=== PATIENT | female | born 1945 | race Caucasian/White ===

== ENCOUNTER 2023-10-22 12:58 | Emergency (ER) | payer MEDICARE ==
[2023-10-22 13:25] VITALS: RESP 18; TEMP 97.3
--- NOTE | 2023-10-22 14:26 | XRAY ---
Indication: Facial injury following fall. Multiple contiguous axial images obtained through the head without contrast. Comparison: None Normal appearing brain parenchyma, ventricles, and bony calvarium for patient's age. Visualized paranasal sinuses and mastoid air cells are clear. CT facial bones and CT cervical spine reported separately. Impression: Normal CT head without contrast exam.
--- NOTE | 2023-10-22 14:30 | XRAY ---
Indication: Facial injury following fall. Multiple contiguous axial images obtained through the cervical spine. Sagittal and coronal reformatted images obtained. Comparison: None Patient is edentulous. Osseous structures demineralized. Axial images negative for acute fracture, suspicious bony lesions, or spinal canal stenosis. Minimal/mild C4-C7 degenerative endplate spurring and mild/moderate multilevel bilateral degenerative facet hypertrophy right greater than left. Sagittal and coronal reformatted images demonstrates normal alignment. C5-C7 degenerative disc space narrowing. No acute compression fracture, subluxation, or jumped facet. Normal appearing craniocervical junction. Visualized noncontrasted soft tissues demonstrate mild bilateral carotid calcifications. Lung apices clear with incidental tiny calcified granulomas. CT facial bones and CT head reported separately. Impression: 1. Negative acute fracture/subluxation. 2. Incidental osteopenia, multilevel degenerative changes, bilateral carotid calcifications, and old granulomatous disease.
--- NOTE | 2023-10-22 14:34 | XRAY ---
Indication: Facial injury following fall. Multiple contiguous axial images obtained through the facial bones. Sagittal and coronal reformatted images obtained. Comparison: None Patient is edentulous. Osseous structures demineralized. Left facial soft tissue swelling with 2.2 x 3.4 x 3.0 cm subcutaneous hematoma. Axial images negative for acute fracture, suspicious bony lesions, or radiopaque foreign body. Orbits including roof, gaming, and floors intact. Paranasal sinuses and nasal passages are clear. Incidental minimal nasal septal deviation to the right and left middle turbinate jermaine bullosa. Visualized noncontrasted soft tissues demonstrates scattered subcentimeter cervical and submandibular lymph nodes, none pathologically enlarged. CT cervical spine and CT head reported separately. Impression: 1. Left facial soft tissue swelling with subcutaneous hematoma. 2. Negative for acute fracture. 3. Incidental nasal septal deviation and left middle turbinate jermaine bullosa.
[2023-10-22 14:57] VITALS: BP 154/87; PULSE 61; O2SAT 97
--- NOTE | 2023-10-22 15:14 | ERPHSYRPT ---
- History of Present Illness Time Seen by Provider: 10/22/23 13:15 Source: patient Exam Limitations: no limitations Patient Subjective Stated Complaint: Facial injury Triage Nursing Assessment: Patient ambulated back to ED and transferred self to bed. Patient A+O X3. Patient's skin pink, warm and dry. Patient complains of facial injury after getting tripped up in her blankets and fell hitting the corner of the table on the left cheek. Patient complains of tenderness to left upper cheek. Patient has bruising noted to gudelia eyes, entire left side of face and neck. Physician History: 78 years old female is sent in ER from [facility] for evaluation of left facial swelling and hematoma to make sure she does not have any fracture. Patient apparently got up from her bed 2 days ago, got tangled/tripped and fell forward hitting her face against the dresser edge. No loss of consciousness. Patient reports acute swelling left face, has been applying ice with some improvement in the swelling today. She was having difficulty opening her eye yesterday which is a little better as well. She has no neck pain, minimal headache at times. No visual disturbance or difficulty speech. No focal numbness tingling or weakness reported. Allergies/Adverse Reactions: No Known Drug Allergies Allergy (Unverified 10/22/23 13:14) Home Medications: Esomeprazole Magnesium [Nexium 24Hr] 1 tab PO DAILY 10/22/23 [History] Hx Influenza Vaccination/Date Given: No Hx Pneumococcal Vaccination/Date Given: No Immunizations Up to Date: Yes Travel Risk - International Travel Have you traveled outside of the country in past 3 weeks: No - Coronavirus Screening Are you exhibiting any of the following symptoms?: No Close contact with a COVID-19 positive Pt in past 14-21 Days: No - Vaccine Status Have you recieved a Covid-19 vaccination: Yes Director Of Patient Safety: Unknown - Vaccination Dates Dates if Unknown: na - Review of Systems Constitutional: No Symptoms Eyes: No Symptoms Ears, Nose, & Throat: No Symptoms Respiratory: No Symptoms Cardiac: No Symptoms Abdominal/Gastrointestinal: No Symptoms Genitourinary Symptoms: No Symptoms Musculoskeletal: Injury Skin: Skin Lesions Neurological: No Symptoms Psychological: No Symptoms Endocrine: No Symptoms Immunological/Allergic: No Symptoms - Past Medical History Pertinent Past Medical History: Yes Neurological History: No Pertinent History ENT History: No Pertinent History Cardiac History: No Pertinent History Respiratory History: No Pertinent History Endocrine Medical History: Hypoglycemia Musculoskeletal History: No Pertinent History GI Medical History: GERD History: No Pertinent History Psycho-Social History: No Pertinent History Female Reproductive Disorders: No Pertinent History Other Medical History: Seasonal allergies, GERD, Vertigo - Past Surgical History Past Surgical History: No Neuro Surgical History: No Pertinent History Cardiac: No Pertinent History Respiratory: No Pertinent History Gastrointestinal: No Pertinent History Genitourinary: No Pertinent History Musculoskeletal: No Pertinent History Female Surgical History: No Pertinent History - Social History Smoking Status: Former smoker Exposure to second hand smoke: Yes Drug Use: none Patient Lives Alone: Yes - Nursing Vital Signs Nursing Vital Signs: Initial Vital Signs Temperature 97.3 F 10/22/23 13:15 Pulse Rate 82 10/22/23 13:15 Respiratory Rate 18 10/22/23 13:15 Blood Pressure 164/95 10/22/23 13:15 O2 Sat by Pulse Oximetry 95 10/22/23 13:15 Pain Scale Pain Intensity 4 - Nella Coma Score Best Eye Response (Nella): (4) open spontaneously Best Verbal Response (Nella): (5) oriented Best Motor Response ([place]): (6) obeys commands [place] Total: 15 - Physical Exam General Appearance: no apparent distress Head Injury: no evidence of injury, No lacerations, No swelling, No tenderness Eye Exam: PERRL/EOMI, eyes nml inspection ENT Exam: airway nml, other (Left maxilla area swelling, mild tenderness. 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 Patient has nonfocal neuroexam. No limitation range of motion of eyeball. Patient is offered pain medication which she declined. I have obtained CT head cervical spine and facial bones which are negative for any acute trauma related findings. Patient does have a hematoma in the left face, recommended intermittent ice application, Tylenol and outpatient follow-up. I have discussed the results of workup with patient and family and conservative management which they understand and agree. Counseled pt/family regarding: diagnosis, need for follow-up, rad results Medical Desision Making - Independent Historian Additional History obtained from: Child - Diagnostic Testing Diagnostic test were ordered, analyzed, and reviewed by me: Yes Radiological Interpretation: Reviewed by me - Departure Departure Disposition: Home Clinical Impression: Contusion of face, Facial hematoma, Fall Condition: Stable Critical Care Time: No Referrals: JOSÉ PETERSON PA [Primary Care Provider] - Follow up/PCP as directed Instructions: Contusion (DC) Additional Instructions: Treatment and ice application. Take Tylenol as needed. Do not take ibuprofen Aleve or any other NSAIDs. Follow-up with primary care for reevaluation in 1 to 2 days. Return to ER for any worsening of swelling, pain, difficulty movements of eyeball or visual disturbance etc.
== END 2023-10-22 15:22 | disposition home or self-care (01) ==
LOC: ED 12:58
DX: S00.83XA Contusion of other part of head, initial encounter (principal); W01.190A Fall on same level from slipping, tripping and stumbling with subsequent striking against furniture, initial encounter; Y92.003 Bedroom of unspecified non-institutional (private) residence as the place of occurrence of the external cause
CPT/HCPCS: 70450; 70486; 72125; 99282